=== PATIENT | female | born 1935 | race Hispanic/Latino ===

== ENCOUNTER 2018-01-07 07:57 | Observation (INO) | payer MEDICARE ==
[~2018-01-07] VITALS: Ht 149.9 cm; Wt 55.4 kg
[~2018-01-07 07:57] MED LIST: AEC81 PO; CHOL100034 PO; FLUO60TA PO; FOLI1TAB61 PO; GABA-531 PO; GABA300S PO; LEVO500T2 PO; LISI10TA7 PO; OLAN7.5T9 PO; SENN25TA PO; SPIR100T3 PO; SPIR50TA3 PO; TORS5TAB12 PO; TRAZ-147 PO
[2018-01-07 08:43] LABS: APPEARANCE,URINE Cloudy (CLEAR); BILIRUBIN,URINE Negative (NEGATIVE); COLOR,URINE Yellow (YELLOW); GLUCOSE, URINE (UA) Negative (NEGATIVE); KETONES,URINE 15 mg/dL (NEGATIVE); LEUKOCYTE ESTERASE ,URINE Large (NEGATIVE); NITRATE,URINE Positive (NEGATIVE); OCCULT BLOOD,URINE Trace (NEGATIVE); PROTEIN,URINE Negative (NEGATIVE)
[2018-01-07] MEDS ORDERED: IOPAMIDOL-370 75 ML VIAL IV ONE (08:46)
[2018-01-07] MEDS ORDERED: ONDANSETRON HCL 4 MG/2 ML VIAL ONE (09:28)
[2018-01-07] MEDS ORDERED: SODIUM CHLORIDE 0.9% 1000ML 1,000 ML IV ONE (09:28)
[2018-01-07] MEDS ORDERED: MORPHINE SULFATE 2 MG/ML 1ML SYG ONE (09:29)
[2018-01-07 09:31] LABS: BASOPHILS % (AUTO) 0.5 % (0.0-5.0); HEMATOCRIT 40.9 % (36-48); LYMPHOCYTES % (AUTO) 13.2 % (21.0-51.0); MEAN CORPUSCULAR HEMOGLOBIN 33.2 pg (27.0-33.0); MEAN CORPUSCULAR HGB CONC 34.1 g/dL (32.0-36.0); MEAN CORPUSCULAR VOLUME 97.5 fL (79-99); MONOCYTES % (AUTO) 8.5 % (3.0-13.0); NEUTROPHILS % (AUTO) 76.8 % (40.0-77.0); PLATELET COUNT (AUTO) 247 K/uL (130-400); RED CELL DISTRIBUTION WIDTH 12.7 % (11.0-15.5); WHITE BLOOD COUNT (AUTO) 6.7 K/uL (4.8-10.8)
[2018-01-07 09:36] LABS: BACTERIA,URINE Many /HPF (None Seen); SQUAMOUS EPITHELIAL CELL,UR Rare /LPF (0-2)
[2018-01-07 09:39] LABS: POTASSIUM 4.2 mmol/L (3.5-5.1)
[2018-01-07 09:48] LABS: ALBUMIN 3.7 g/dL (3.5-5.0); BILIRUBIN,TOTAL 0.5 mg/dL (0.2-1.0); TOTAL PROTEIN, SERUM 6.9 g/dL (6.0-8.3)
[2018-01-07] MEDS ORDERED: CEFTRIAXONE SODIUM 1 GM ONE (10:21)
[2018-01-07] MEDS ORDERED: MORPHINE SULFATE 2 MG/ML 1ML SYG IV PRN (11:30)
[2018-01-07] MEDS ORDERED: LACTULOSE 20 GM/30 ML UDCUP PO PRN (11:30)
[2018-01-07] MEDS ORDERED: ACETAMINOPHEN 325 MG TAB PO PRN ×2 (11:30)
[2018-01-07] MEDS ORDERED: GUAIFENESIN-DM 200/20 MG 10 ML PO PRN (11:30)
[2018-01-07] MEDS ORDERED: CEFTRIAXONE 1GM/D5W 50ML 50 ML IV SCH (11:30)
[2018-01-07] MEDS ORDERED: MAG HYDROX/AL HYDROX/SIMETH ES 30 ML SUSP UDCUP PO PRN (11:30)
[2018-01-07] MEDS ORDERED: ONDANSETRON HCL 4 MG/2 ML VIAL IV PRN (11:30)
[2018-01-07] MEDS ORDERED: KETOROLAC TROMETHAMINE 15MG/ML IV PRN (11:30)
[2018-01-07 22:00] VITALS: BP 117/66
[2018-01-07 22:50] VITALS: BP 132/61
[2018-01-08] VITALS: BP 120/65
[2018-01-08 04:00] VITALS: BP 143/67
[2018-01-08] MEDS ORDERED: OLAN2.5T29 PO (04:12)
[2018-01-08] MEDS ORDERED: VORT20TA PO (04:12)
[2018-01-08] MEDS ORDERED: MEMA1CAP3 PO (04:12)
[2018-01-08 05:32] LABS: HEMATOCRIT 39.4 % (36-48); MEAN CORPUSCULAR HEMOGLOBIN 34.2 pg (27.0-33.0); MEAN CORPUSCULAR HGB CONC 35.1 g/dL (32.0-36.0); MEAN CORPUSCULAR VOLUME 97.4 fL (79-99); PLATELET COUNT (AUTO) 272 K/uL (130-400); RED BLOOD CELL COUNT(AUTO) 4.05 MIL/uL (4.00-5.50); RED CELL DISTRIBUTION WIDTH 13.1 % (11.0-15.5); WHITE BLOOD COUNT (AUTO) 6.3 K/uL (4.8-10.8)
[2018-01-08 08:07] VITALS: BP 140/73
[2018-01-08 11:20] VITALS: BP 111/56
[2018-01-08] MEDS: SPIRONOLACTONE 25 MG TAB PO SCH ×2 (11:22→21:00)
[2018-01-08] MEDS: TORSEMIDE 20 MG TAB PO SCH (11:23)
[2018-01-08] MEDS: FLUOXETINE HCL 20 MG CAPSULE PO SCH (11:23)
[2018-01-08] MEDS: ASPIRIN 81 MG EC TAB PO SCH (11:23)
[2018-01-08] MEDS: OLANZAPINE 5 MG TAB PO SCH (11:25)
[2018-01-08] MEDS: CEFTRIAXONE SODIUM 1 GM IVP SCH (11:26)
[2018-01-08] MEDS: FAMOTIDINE/PF 20 MG/2 ML VIAL IV SCH (11:26)
[2018-01-08] MEDS: LISINOPRIL 10 MG TABLET PO SCH (11:26)
[2018-01-08] MEDS ORDERED: SENNOSIDES 8.6 MG TABLET PO PRN (12:42)
[2018-01-08 16:49] VITALS: BP 107/60
[2018-01-08 19:54] VITALS: BP 119/65
[2018-01-08] MEDS ORDERED: OLANZAPINE 5 MG TAB PO SCH (21:00)
[2018-01-08] MEDS ORDERED: TRAZODONE HCL 100 MG TABLET PO SCH (21:00)
[2018-01-09] VITALS: BP 120/64
[2018-01-09 04:00] VITALS: BP 123/75
[2018-01-09 07:00] VITALS: BP 125/67
[2018-01-09] MEDS: FLUOXETINE HCL 20 MG CAPSULE PO SCH (09:03)
[2018-01-09] MEDS: ASPIRIN 81 MG EC TAB PO SCH (09:03)
[2018-01-09] MEDS: FAMOTIDINE/PF 20 MG/2 ML VIAL IV SCH (09:04)
[2018-01-09] MEDS: SPIRONOLACTONE 25 MG TAB PO SCH (09:04)
[2018-01-09] MEDS: LISINOPRIL 10 MG TABLET PO SCH (09:05)
[2018-01-09] MEDS: OLANZAPINE 5 MG TAB PO SCH (09:54)
[2018-01-09] MEDS: TORSEMIDE 20 MG TAB PO SCH (09:54)
[2018-01-09] MEDS: CEFTRIAXONE SODIUM 1 GM IVP SCH (10:24)
[2018-01-09 11:00] VITALS: BP 110/65
[2018-01-09] MEDS ORDERED: LEVO500T2 PO (12:31)
[2018-01-09 16:00] VITALS: BP_SYST 121; BP_SYST 132; BP_DIAS 71; BP_DIAS 79
== END 2018-01-09 18:50 | disposition home or self-care (01) ==
LOC: EDH 07:57 → EDHIP 11:21 → 4CH 22:23
PROVIDERS: ADMIT Family Medicine; ATTEND Family Medicine
DX: N39.0 Urinary tract infection, site not specified (principal); M54.9 Dorsalgia, unspecified; I10 Essential (primary) hypertension; I25.10 Atherosclerotic heart disease of native coronary artery without angina pectoris; K52.9 Noninfective gastroenteritis and colitis, unspecified; N28.1 Cyst of kidney, acquired
CPT/HCPCS: 36415 ×2; 71046; 72148; 74177; 80053; 81001; 82550; 84484; 85025; 85027; 87088; 87186; 87804 ×2; 93005; 96374; 96375; 96376; 97039; 97116; 97161; 99285; A4218; G0378 ×55; G8978; G8979; G8980; G8981; G8982; G8983; J0696 ×4; J2405; J3490 ×2; J7030; Q9967

== ENCOUNTER 2018-01-10 12:18 | Emergency (ER) | payer MEDICARE ==
[~2018-01-10 12:18] MED LIST changes: +MEMA1CAP3 PO; +OLAN2.5T29 PO; +VORT20TA PO
[2018-01-10] MEDS ORDERED: ONDANSETRON HCL 4 MG/2 ML VIAL ONE (12:36)
[2018-01-10] MEDS ORDERED: SODIUM CHLORIDE 0.9% 1000ML 1,000 ML IV ONE (12:51)
[2018-01-10 13:21] LABS: BASOPHILS % (AUTO) 0.3 % (0.0-5.0); EOSINOPHILS % (AUTO) 0.3 % (0.0-8.0); HEMATOCRIT 42.4 % (36-48); LYMPHOCYTES % (AUTO) 7.8 % (21.0-51.0); MEAN CORPUSCULAR HEMOGLOBIN 33.3 pg (27.0-33.0); MEAN CORPUSCULAR HGB CONC 34.3 g/dL (32.0-36.0); MEAN CORPUSCULAR VOLUME 97.2 fL (79-99); MONOCYTES % (AUTO) 5.3 % (3.0-13.0); NEUTROPHILS % (AUTO) 86.3 % (40.0-77.0); PLATELET COUNT (AUTO) 295 K/uL (130-400); RED BLOOD CELL COUNT(AUTO) 4.36 MIL/uL (4.00-5.50); RED CELL DISTRIBUTION WIDTH 13.2 % (11.0-15.5); WHITE BLOOD COUNT (AUTO) 8.8 K/uL (4.8-10.8)
[2018-01-10 13:32] LABS: CREATININE 1.6 mg/dL (0.5-1.5); POTASSIUM 4.2 mmol/L (3.5-5.1)
[2018-01-10 13:37] LABS: ALBUMIN 3.9 g/dL (3.5-5.0); BILIRUBIN,TOTAL 0.5 mg/dL (0.2-1.0); TOTAL PROTEIN, SERUM 7.3 g/dL (6.0-8.3)
[2018-01-10 14:01] LABS: APPEARANCE,URINE Clear (CLEAR); BILIRUBIN,URINE Negative (NEGATIVE); COLOR,URINE Yellow (YELLOW); GLUCOSE, URINE (UA) Negative (NEGATIVE); KETONES,URINE 15 mg/dL (NEGATIVE); LEUKOCYTE ESTERASE ,URINE Negative (NEGATIVE); NITRATE,URINE Negative (NEGATIVE); OCCULT BLOOD,URINE Negative (NEGATIVE); PH,URINE 5.5 (5.0-8.0); PROTEIN,URINE Negative (NEGATIVE); UROBILINOGEN,URINE 0.2 mg/dL (0.2-1.0)
[2018-01-10 14:11] LABS: BACTERIA,URINE Rare /HPF (None Seen); RBC,URINE 0-1 /HPF (0-1)
[2018-01-10 14:12] LABS: SQUAMOUS EPITHELIAL CELL,UR Few /LPF (0-2)
[2018-01-10] MEDS ORDERED: CEFTRIAXONE SODIUM 1 GM ONE (19:33)
== END 2018-01-10 20:22 | disposition left against medical advice (07) ==
LOC: EDH 12:18 → EDHIP 15:45 → UNDOADMOB 15:45 → EDH 20:22
DX: R11.2 Nausea with vomiting, unspecified (principal); M19.90 Unspecified osteoarthritis, unspecified site; I25.10 Atherosclerotic heart disease of native coronary artery without angina pectoris; I10 Essential (primary) hypertension; F32.9 Major depressive disorder, single episode, unspecified; Z98.890 Other specified postprocedural states
CPT/HCPCS: 36415; 80053; 81001; 85025; 87088; 87804 ×2; 96361; 96374; 99285; J0696; J2405; J7030

== ENCOUNTER 2018-01-16 08:44 | Emergency (ER) | payer MEDICARE ==
[2018-01-16 09:18] LABS: BASOPHILS % (AUTO) 0.6 % (0.0-5.0); EOSINOPHILS % (AUTO) 1.5 % (0.0-8.0); HEMATOCRIT 45.5 % (36-48); LYMPHOCYTES % (AUTO) 17.3 % (21.0-51.0); MEAN CORPUSCULAR HEMOGLOBIN 33.3 pg (27.0-33.0); MEAN CORPUSCULAR HGB CONC 34.6 g/dL (32.0-36.0); MEAN CORPUSCULAR VOLUME 96.2 fL (79-99); MONOCYTES % (AUTO) 6.4 % (3.0-13.0); NEUTROPHILS % (AUTO) 74.2 % (40.0-77.0); PLATELET COUNT (AUTO) 243 K/uL (130-400); RED BLOOD CELL COUNT(AUTO) 4.72 MIL/uL (4.00-5.50)
[2018-01-16 09:27] LABS: CREATININE 1.2 mg/dL (0.5-1.5); POTASSIUM 4.3 mmol/L (3.5-5.1)
[2018-01-16 09:31] LABS: BILIRUBIN,TOTAL 0.5 mg/dL (0.2-1.0); TOTAL PROTEIN, SERUM 7.5 g/dL (6.0-8.3)
[2018-01-16 09:58] LABS: APPEARANCE,URINE Cloudy (CLEAR); BILIRUBIN,URINE Negative (NEGATIVE); COLOR,URINE Dark Yellow (YELLOW); GLUCOSE, URINE (UA) Negative (NEGATIVE); KETONES,URINE Trace mg/dL (NEGATIVE); LEUKOCYTE ESTERASE ,URINE Trace (NEGATIVE); NITRATE,URINE Negative (NEGATIVE); OCCULT BLOOD,URINE Negative (NEGATIVE); PROTEIN,URINE POS 1+ (NEGATIVE)
[2018-01-16 10:06] LABS: RBC,URINE 0-1 /HPF (0-1)
[2018-01-16 10:07] LABS: BACTERIA,URINE Rare /HPF (None Seen); MUCUS,URINE Rare LPF (None Seen); SQUAMOUS EPITHELIAL CELL,UR Rare /LPF (0-2)
[2018-01-16] MEDS ORDERED: SODIUM CHLORIDE 0.9% 500ML 500 ML IV ONE (11:38)
[2018-01-16] MEDS ORDERED: ONDANSETRON ODT 4 MG TAB ONE (11:38)
[2018-01-16] MEDS ORDERED: CEPHALEXIN 500 MG CAPSULE ONE (11:49)
== END 2018-01-16 12:26 | disposition home or self-care (01) ==
LOC: EDH 08:44
DX: N39.0 Urinary tract infection, site not specified (principal); E86.0 Dehydration; R11.2 Nausea with vomiting, unspecified; I10 Essential (primary) hypertension; M19.90 Unspecified osteoarthritis, unspecified site; I25.10 Atherosclerotic heart disease of native coronary artery without angina pectoris
CPT/HCPCS: 36415; 80053; 81001; 82150; 83690; 85025; 87088; 99284; J7040

== ENCOUNTER 2018-01-24 14:01 | Emergency (ER) | payer MEDICARE ==
[2018-01-24 16:02] LABS: BASOPHILS % (AUTO) 0.9 % (0.0-5.0); EOSINOPHILS % (AUTO) 1.8 % (0.0-8.0); HEMATOCRIT 43.4 % (36-48); LYMPHOCYTES % (AUTO) 15.1 % (21.0-51.0); MEAN CORPUSCULAR HEMOGLOBIN 32.8 pg (27.0-33.0); MEAN CORPUSCULAR HGB CONC 33.8 g/dL (32.0-36.0); MEAN CORPUSCULAR VOLUME 97.1 fL (79-99); MONOCYTES % (AUTO) 8.4 % (3.0-13.0); NEUTROPHILS % (AUTO) 73.8 % (40.0-77.0); PLATELET COUNT (AUTO) 260 K/uL (130-400); RED BLOOD CELL COUNT(AUTO) 4.47 MIL/uL (4.00-5.50); RED CELL DISTRIBUTION WIDTH 13.2 % (11.0-15.5); WHITE BLOOD COUNT (AUTO) 9.5 K/uL (4.8-10.8)
[2018-01-24 16:05] LABS: APPEARANCE,URINE Clear (CLEAR); BILIRUBIN,URINE Negative (NEGATIVE); COLOR,URINE Yellow (YELLOW); GLUCOSE, URINE (UA) Negative (NEGATIVE); KETONES,URINE Negative (NEGATIVE); LEUKOCYTE ESTERASE ,URINE Small (NEGATIVE); NITRATE,URINE Negative (NEGATIVE); OCCULT BLOOD,URINE Negative (NEGATIVE); PROTEIN,URINE Negative (NEGATIVE); UROBILINOGEN,URINE 0.2 mg/dL (0.2-1.0)
[2018-01-24 16:17] LABS: POTASSIUM 4.2 mmol/L (3.5-5.1)
[2018-01-24 16:18] LABS: BACTERIA,URINE Few /HPF (None Seen); MUCUS,URINE Rare LPF (None Seen); RBC,URINE 0-1 /HPF (0-1); SQUAMOUS EPITHELIAL CELL,UR Moderate /HPF (0-2)
[2018-01-24 16:22] LABS: ALBUMIN 3.5 g/dL (3.5-5.0); BILIRUBIN,TOTAL 0.5 mg/dL (0.2-1.0); TOTAL PROTEIN, SERUM 7.1 g/dL (6.0-8.3)
[2018-01-24] MEDS ORDERED: SODIUM CHLORIDE 0.9% 1000ML 1,000 ML IV ONE (16:32)
== END 2018-01-24 18:07 | disposition home or self-care (01) ==
LOC: EDH 14:01
DX: R11.2 Nausea with vomiting, unspecified (principal); R63.0 Anorexia; I10 Essential (primary) hypertension; I25.10 Atherosclerotic heart disease of native coronary artery without angina pectoris; M19.90 Unspecified osteoarthritis, unspecified site
CPT/HCPCS: 36415; 80053; 81001; 82550; 83690; 84484; 85025; 93005; 96360; 99285; J7030

== ENCOUNTER 2019-07-12 17:47 | Emergency (ER) | payer MEDICARE ==
[~2019-07-12 17:47] MED LIST changes: -AEC81 PO; +ASPI-555 PO; +CEFD300C3 PO; -CHOL100034 PO; -FOLI1TAB61 PO; -GABA-531 PO; -GABA300S PO; -LEVO500T2 PO; -LISI10TA7 PO; -SENN25TA PO; -SPIR100T3 PO; +SPIR100T5 PO; -SPIR50TA3 PO; +SPIR50TA5 PO; -TRAZ-147 PO; +TRAZ-187 PO; -VORT20TA PO
[2019-07-12 18:17] LABS: BASOPHILS % (AUTO) 0.5 % (0.0-5.0); HEMATOCRIT 31.4 % (36-48); LYMPHOCYTES % (AUTO) 3.1 % (21.0-51.0); MEAN CORPUSCULAR HEMOGLOBIN 33.6 pg (27.0-33.0); MEAN CORPUSCULAR HGB CONC 34.8 g/dL (32.0-36.0); MEAN CORPUSCULAR VOLUME 96.6 fL (79-99); MONOCYTES % (AUTO) 9.1 % (3.0-13.0); NEUTROPHILS % (AUTO) 87.3 % (40.0-77.0); PLATELET COUNT (AUTO) 206 K/uL (130-400); RED BLOOD CELL COUNT(AUTO) 3.25 MIL/uL (4.00-5.50); RED CELL DISTRIBUTION WIDTH 12.8 % (11.0-15.5); WHITE BLOOD COUNT (AUTO) 13.7 K/uL (4.8-10.8)
[2019-07-12 18:30] LABS: CREATININE 1.3 mg/dL (0.5-1.5); POTASSIUM 3.3 mmol/L (3.5-5.1)
[2019-07-12 18:34] LABS: ALBUMIN 2.9 g/dL (3.5-5.0); TOTAL PROTEIN, SERUM 6.5 g/dL (6.0-8.3)
[2019-07-12 20:06] LABS: APPEARANCE,URINE CLOUDY (CLEAR); BILIRUBIN,URINE SMALL (NEGATIVE); COLOR,URINE YELLOW (YELLOW); GLUCOSE, URINE (UA) NEGATIVE (NEGATIVE); KETONES,URINE 5 mg/dL (NEGATIVE); LEUKOCYTE ESTERASE ,URINE LARGE (NEGATIVE); NITRATE,URINE NEGATIVE (NEGATIVE); OCCULT BLOOD,URINE MODERATE (NEGATIVE); PROTEIN,URINE 100 mg/dL (NEGATIVE)
[2019-07-12 20:20] LABS: BACTERIA,URINE Moderate /HPF (None Seen); SQUAMOUS EPITHELIAL CELL,UR Few /HPF (0-2); WBC,URINE 26-50 /HPF (0-1)
[2019-07-12] MEDS ORDERED: CEFTRIAXONE SODIUM 1 GM ONE (20:32)
== END 2019-07-12 22:23 | disposition home or self-care (01) ==
LOC: EDH 17:47
DX: S09.8XXA Other specified injuries of head, initial encounter (principal); N39.0 Urinary tract infection, site not specified; F41.9 Anxiety disorder, unspecified; I25.10 Atherosclerotic heart disease of native coronary artery without angina pectoris; F32.9 Major depressive disorder, single episode, unspecified; I10 Essential (primary) hypertension; Z79.899 Other long term (current) drug therapy; W18.39XA Other fall on same level, initial encounter; Y93.89 Activity, other specified; Y92.89 Other specified places as the place of occurrence of the external cause; Y99.8 Other external cause status
CPT/HCPCS: 36415; 70450; 80053; 81001; 84484; 85025; 87077; 87088; 87186; 93005; 96374; 99285; J0696

== ENCOUNTER 2022-02-04 18:52 | Emergency (ER) | payer MEDICARE ==
[~2022-02-04 18:52] MED LIST changes: -ASPI-555 PO; +ASPI-556 PO; +OLAN7.5T18 PO; -OLAN7.5T9 PO
[2022-02-04 20:23] LABS: BASOPHILS % (AUTO) 0.5 % (0.0-5.0); EOSINOPHILS % (AUTO) 1.4 % (0.0-8.0); HEMATOCRIT 38.8 % (36-48); MEAN CORPUSCULAR HEMOGLOBIN 31.4 pg (27.0-33.0); MEAN CORPUSCULAR HGB CONC 32.7 g/dL (32.0-36.0); MONOCYTES % (AUTO) 7.2 % (3.0-13.0); NEUTROPHILS % (AUTO) 76.5 % (40.0-77.0); PLATELET COUNT (AUTO) 189 K/uL (130-400); RED BLOOD CELL COUNT(AUTO) 4.04 MIL/uL (4.00-5.50); RED CELL DISTRIBUTION WIDTH 12.7 % (11.0-15.5); WHITE BLOOD COUNT (AUTO) 8.7 K/uL (4.8-10.8)
[2022-02-04 20:30] LABS: POTASSIUM 4.7 mmol/L (3.5-5.1)
[2022-02-04 20:31] LABS: INR 0.93 (0.85-1.15)
[2022-02-04 20:32] LABS: PARTIAL THROMBOPLASTIN TIME 23.5 SEC (26.3-35.5)
[2022-02-04 20:40] LABS: ALBUMIN 3.1 g/dL (3.5-5.0); BILIRUBIN,TOTAL 0.2 mg/dL (0.2-1.0)
[2022-02-04] MEDS ORDERED: TETANUS/DIPHTHERIA TOXOID [ADULT] 0.5 ML VIAL IM ONE (21:00)
[2022-02-04] MEDS ORDERED: L.E.T. GEL 3ML SYG TP ONE (21:00)
[2022-02-04] MEDS ORDERED: FLUO40CA49 PO (21:16)
[2022-02-04] MEDS ORDERED: SPIR50TA5 PO (21:16)
[2022-02-04] MEDS ORDERED: OLAN2.5T29 PO (21:16)
[2022-02-04] MEDS ORDERED: DONE10TA43 PO (21:16)
[2022-02-04] MEDS ORDERED: MEMA10TA55 PO (21:16)
[2022-02-04] MEDS ORDERED: TORS5TAB12 PO (21:16)
[2022-02-04] MEDS ORDERED: OMEP40CA21 PO (21:16)
[2022-02-04] MEDS ORDERED: OLAN7.5T18 PO (21:16)
[2022-02-04] MEDS ORDERED: TRAZ-187 PO (21:16)
[2022-02-04] MEDS ORDERED: LIDOCAINE HCL MPF 1% 5ML VIAL ONE (23:53)
[2022-02-05] MEDS ORDERED: NEOMY SULF/BACITRA/POLYMYXIN B 1 EACH PACKET TP ONE (01:00)
[2022-02-05 01:35] VITALS: BP 131/80
== END 2022-02-05 01:36 | disposition home or self-care (01) ==
LOC: EDH 18:52
DX: S01.81XA Laceration without foreign body of other part of head, initial encounter (principal); G30.9 Alzheimer's disease, unspecified; F02.80 Dementia in other diseases classified elsewhere, unspecified severity, without behavioral disturbance, psychotic disturbance, mood disturbance, and anxiety; Z79.82 Long term (current) use of aspirin; Z79.899 Other long term (current) drug therapy; W06.XXXA Fall from bed, initial encounter; Y93.89 Activity, other specified; Y92.89 Other specified places as the place of occurrence of the external cause; Y99.8 Other external cause status
CPT/HCPCS: 12013; 36415; 70450; 70486; 71250; 72125; 74176; 80053; 84484; 85025; 85610; 85730; 90471; 90714; 93005; 99285; J3490